=== PATIENT | female | born 1970 | race African-American/Black ===

== ENCOUNTER 2017-05-20 15:55 | Emergency (ER) | payer MEDICAID ==
[~2017-05-20] VITALS: Ht 170.2 cm; Wt 129.3 kg
[2017-05-20 16:10] VITALS: BP_SYST 158
--- NOTE | 2017-05-20 16:40 | NUR ---
PT ARRIVED FROM HOME WITH NAD NOTED ,VSS, PT A&O X4 C/O GENERALIZED BODY ACHES.
[2017-05-20 16:47] LABS: EOSINOPHILS # (AUTO) 0.2 K/uL (0.0-0.4); EOSINOPHILS % (AUTO) 2.4 % (0.0-4.0)
--- NOTE | 2017-05-20 16:49 | NUR ---
Pt to bed 7
[2017-05-20 16:52] LABS: BASOPHILS % (AUTO) 0.7 % (0.0-2.0); HEMATOCRIT 39.5 % (36-48); HEMOGLOBIN 12.4 g/dL (12.0-16.0); LYMPHOCYTES # (AUTO) 1.7 K/uL (1.0-5.5); LYMPHOCYTES % (AUTO) 26.5 % (20.5-51.5); MEAN CORPUSCULAR HEMOGLOBIN 24 pg (27-31); MEAN CORPUSCULAR HGB CONC 32 % (32-36); MEAN CORPUSCULAR VOLUME 75 fL (79.0-98.0); MONOCYTES # (AUTO) 0.3 K/uL (0.0-1.0); MONOCYTES % (AUTO) 4.8 % (1.7-9.3); NEUTROPHILS # (AUTO) 4.2 K/uL (1.8-7.7); NEUTROPHILS % (AUTO) 65.6 % (40.0-70.0); PLATELET COUNT (AUTO) 356 K/uL (130-430); RED BLOOD CELL COUNT(AUTO) 5.25 MIL/uL (4.2-6.2); RED CELL DISTRIBUTION WIDTH 14.7 % (9.0-15.0); WHITE BLOOD COUNT (AUTO) 6.4 K/uL (4.8-10.8)
[2017-05-20 16:59] LABS: CALCIUM 8.9 mg/dL (8.4-11.0); CREATININE 0.81 mg/dL (0.55-1.30); POTASSIUM 4.3 mmol/L (3.5-5.1)
[2017-05-20 17:04] LABS: ALBUMIN 3.3 g/dL (3.4-4.8); TOTAL BILIRUBIN 0.3 mg/dL (0.0-1.0); TOTAL PROTEIN, SERUM 7.6 g/dL (6.4-8.3)
--- NOTE | 2017-05-20 17:20 | NUR ---
DR. ROSE AT BEDSIDE. LABS OBTAINED
[2017-05-20] MEDS ORDERED: CYANOCOBALAMIN 1000 MCG/ML VIAL IM ONE (17:45)
[2017-05-20 17:48] LABS: BILIRUBIN,URINE NEGATIVE (NEGATIVE); BLOOD, URINE NEGATIVE (NEGATIVE); CLARITY/URINE CLEAR (CLEAR); COLOR,URINE YELLOW (YELLOW); GLUCOSE,URINE NEGATIVE (NEGATIVE); KETONES,URINE NEGATIVE (NEGATIVE); LEUKOCYTE ESTERASE ,URINE NEGATIVE (NEGATIVE); NITRITE, URINE NEGATIVE (NEGATIVE); PROTEIN URINE NEGATIVE (NEGATIVE)
[2017-05-20] MEDS ORDERED: NEPHROVITE, (FOLIC ACID/VITAMIN B COMP W-C 1 TAB) PO SCH (18:15)
[2017-05-20 18:46] VITALS: BP_SYST 129
--- NOTE | 2017-05-20 18:57 | NUR ---
Patient given written and verbal discharge instructions and verbalizes understanding. ER MD discussed with patient the results and treatment provided. Patient in stable condition. ID arm band remove Patient educated on pain management and to follow up with PMD. Pain Scale [0]. Opportunity for questions provided and answered.
== END 2017-05-20 18:46 | disposition home or self-care (01) ==
LOC: SED 15:55
DX: M79.2 Neuralgia and neuritis, unspecified (principal); J45.909 Unspecified asthma, uncomplicated; I10 Essential (primary) hypertension; E66.9 Obesity, unspecified; Z68.41 Body mass index [BMI] 40.0-44.9, adult
CPT/HCPCS: 36415; 80053; 81003; 85025; 96372; 99284; J3420

== ENCOUNTER 2017-06-23 22:32 | Emergency (ER) | payer MEDICAID ==
[~2017-06-23] VITALS: Ht 170.2 cm; Wt 124.3 kg
[2017-06-23 23:24] VITALS: BP_SYST 162
--- NOTE | 2017-06-23 23:40 | NUR ---
Note [email or web address] in EDM - 06/24/17 at 0428 by [email or web address] Pt states having generalized swelling to face due to possible bug bite that "possibly occurred on 06/22/17". Slight swelling noted, generalized to face. Pt denies SOB at this time. Pt denies pain at this time. Pt denies any other complaints.
--- NOTE | 2017-06-24 01:17 | NUR ---
PT AMBULATORY TO BED 8
--- NOTE | 2017-06-24 01:20 | NUR ---
Pt states having generalized swelling to face due to possible bug bite that "possibly occurred on 06/22/17". Slight swelling noted, generalized to face. Pt denies SOB at this time. Pt denies pain at this time. Pt denies any other complaints.
[2017-06-24] MEDS ORDERED: cefTRIAXone 1 GM VIAL IM ONE (02:30)
[2017-06-24 02:42] VITALS: BP_SYST 157
--- NOTE | 2017-06-24 02:42 | NUR ---
Patient given written and verbal discharge instructions and verbalizes understanding. ER MD discussed with patient the results and treatment provided. Patient in stable condition. ID arm band removed. Rx of Leverett and antibiotic given. Patient educated on pain management and to follow up with PMD. Pain Scale 0/10. Opportunity for questions provided and answered.
--- NOTE | 2017-06-24 02:42 | NUR ---
No adverse effects to medications noted.
[2017-06-24] MEDS ORDERED: LIDOCAINE PF 1%, 20 MG/2 ML AMP INJ ONE (02:45)
== END 2017-06-24 02:42 | disposition home or self-care (01) ==
LOC: SED 22:32
DX: L03.211 Cellulitis of face (principal); J45.909 Unspecified asthma, uncomplicated; I10 Essential (primary) hypertension; E66.9 Obesity, unspecified; Z68.41 Body mass index [BMI] 40.0-44.9, adult; Z98.84 Bariatric surgery status
CPT/HCPCS: 96372; 99283; J0696; J2001

== ENCOUNTER 2017-06-25 17:44 | Emergency (ER) | payer MEDICAID ==
[~2017-06-25] VITALS: Ht 170.2 cm; Wt 124.3 kg
[2017-06-25 17:50] VITALS: BP_SYST 151
[2017-06-25] MEDS ORDERED: LIDOCAINE 1% 10 MG/ML, 20 ML MDV INJ ONE (18:15)
[2017-06-25] MEDS ORDERED: CLINDAMYCIN 900 MG in D5W 100 ML IV ONE (18:45)
[2017-06-25] MEDS ORDERED: CLINDAMYCIN 900 mg/50mL D5W 50 ML IV ONE (19:43)
[2017-06-25 20:23] VITALS: BP_SYST 135
== END 2017-06-25 20:23 | disposition home or self-care (01) ==
LOC: SED 17:44
DX: M27.2 Inflammatory conditions of jaws (principal); I10 Essential (primary) hypertension; J45.909 Unspecified asthma, uncomplicated; E66.9 Obesity, unspecified
CPT/HCPCS: 10060; 96365; 99284; J2001; J3490; J7060

== ENCOUNTER 2017-06-28 09:35 | Emergency (ER) | payer MEDICAID ==
[~2017-06-28] VITALS: Ht 170.2 cm; Wt 124.3 kg
[2017-06-28 09:41] VITALS: BP_SYST 152
--- NOTE | 2017-06-28 09:41 | NUR ---
Patient to ER bed 08 to gown for evaluation. Side rails up. Report given to Sarita
--- NOTE | 2017-06-28 09:45 | NUR ---
ER Dr. Troy at bedside examining patient.
--- NOTE | 2017-06-28 09:46 | NUR ---
Pt AAOX4, able to verbalize needs. Pt states she is here for a recheck from previous visit for "bug bite" cellulitis on right chin. No active bleeding or drainage noted from site, site is nontender and firm around edges of bite. Pt states no pain or discomfort at this time. Afebrile. No other complaints or injuries per patient or noted.
[2017-06-28] MEDS ORDERED: cefTRIAXone 1 GM in LIDOCAINE 1%, 20 ML MDV 2.1 ML IM ONE (10:00)
--- NOTE | 2017-06-28 10:41 | NUR ---
Patient given written and verbal discharge instructions and verbalizes understanding. ER MD discussed with patient the results and treatment provided. Patient in stable condition. ID arm band removed. Rx of keflex and motrin given. Patient educated on pain management and to follow up with PMD. Pain Scale 0/10. Opportunity for questions provided and answered.
[2017-06-28 10:45] VITALS: BP_SYST 152
== END 2017-06-28 10:41 | disposition home or self-care (01) ==
LOC: SED 09:35
DX: Z48.01 Encounter for change or removal of surgical wound dressing (principal); R51 Headache; I10 Essential (primary) hypertension; J45.909 Unspecified asthma, uncomplicated; E66.9 Obesity, unspecified; Z68.41 Body mass index [BMI] 40.0-44.9, adult; Z98.84 Bariatric surgery status
CPT/HCPCS: 96372; 99283; J0696; J2001

== ENCOUNTER 2017-09-09 07:40 | Emergency (ER) | payer MEDICAID ==
[~2017-09-09] VITALS: Ht 152.4 cm; Wt 112.9 kg
[2017-09-09 07:46] VITALS: BP_SYST 156
--- NOTE | 2017-09-09 07:53 | NUR ---
Patient to ER bed 6 for evaluation. Side rails up. Pt refused to put gown on. Report given to Kenji MOREJON.
--- NOTE | 2017-09-09 07:53 | NUR ---
Pt report received from JEAN-PIERRE Christianson. Pt here for Vitamin B12 shot. Pt states that she's unable to get the shots from her PMD on a regular basis.
--- NOTE | 2017-09-09 08:00 | NUR ---
Dr. Russo at bedside to assess pt.
[2017-09-09] MEDS ORDERED: CYANOCOBALAMIN 1000 MCG/ML VIAL IM ONE (08:45)
[2017-09-09 08:47] LABS: BASOPHILS % (AUTO) 0.9 % (0.0-2.0); EOSINOPHILS # (AUTO) 0.2 K/uL (0.0-0.4); EOSINOPHILS % (AUTO) 4.2 % (0.0-4.0); HEMATOCRIT 35.4 % (36-48); HEMOGLOBIN 10.9 g/dL (12.0-16.0); LYMPHOCYTES # (AUTO) 1.2 K/uL (1.0-5.5); LYMPHOCYTES % (AUTO) 28.3 % (20.5-51.5); MEAN CORPUSCULAR HEMOGLOBIN 22 pg (27-31); MEAN CORPUSCULAR HGB CONC 31 % (32-36); MEAN CORPUSCULAR VOLUME 71 fL (79.0-98.0); MONOCYTES # (AUTO) 0.4 K/uL (0.0-1.0); MONOCYTES % (AUTO) 9.2 % (1.7-9.3); NEUTROPHILS # (AUTO) 2.5 K/uL (1.8-7.7); NEUTROPHILS % (AUTO) 57.4 % (40.0-70.0); PLATELET COUNT (AUTO) 306 K/uL (130-430); RED BLOOD CELL COUNT(AUTO) 4.98 MIL/uL (4.2-6.2); RED CELL DISTRIBUTION WIDTH 16.2 % (9.0-15.0); WHITE BLOOD COUNT (AUTO) 4.4 K/uL (4.8-10.8)
[2017-09-09 09:01] LABS: CALCIUM 9.4 mg/dL (8.4-11.0); CREATININE 0.63 mg/dL (0.55-1.30); POTASSIUM 4.2 mmol/L (3.5-5.1)
[2017-09-09 09:06] LABS: TOTAL BILIRUBIN 0.2 mg/dL (0.0-1.0)
[2017-09-09 09:24] VITALS: BP_SYST 145
--- NOTE | 2017-09-09 09:24 | NUR ---
Patient given written and verbal discharge instructions and verbalizes understanding. ER MD discussed with patient the results and treatment provided. Patient in stable condition. ID arm band removed. No Rx given. Patient educated on pain management and to follow up with PMD. Pain Scale 2/10. Opportunity for questions provided and answered.
== END 2017-09-09 09:24 | disposition home or self-care (01) ==
LOC: SED 07:40
DX: D50.9 Iron deficiency anemia, unspecified (principal); J45.909 Unspecified asthma, uncomplicated; I10 Essential (primary) hypertension; Z98.84 Bariatric surgery status
CPT/HCPCS: 36415; 80053; 83690; 85025; 96372; 99284; J3420

== ENCOUNTER 2018-01-28 11:02 | Emergency (ER) | payer MEDICAID ==
[~2018-01-28] VITALS: Ht 170.2 cm; Wt 112.5 kg
[2018-01-28 11:15] VITALS: BP_SYST 184
[2018-01-28 12:53] LABS: CALCIUM 9.3 mg/dL (8.4-11.0); CREATININE 0.59 mg/dL (0.55-1.30); POTASSIUM 4.4 mmol/L (3.5-5.1)
[2018-01-28 12:57] LABS: ALBUMIN 3.4 g/dL (3.4-4.8); BASOPHILS # (AUTO) 0.1 K/uL (0.0-0.2); BASOPHILS % (AUTO) 1.2 % (0.0-2.0); EOSINOPHILS # (AUTO) 0.2 K/uL (0.0-0.4); EOSINOPHILS % (AUTO) 2.7 % (0.0-4.0); HEMATOCRIT 40.6 % (36-48); HEMOGLOBIN 12.6 g/dL (12.0-16.0); INR 0.9 (0.8-1.2); LYMPHOCYTES # (AUTO) 1.3 K/uL (1.0-5.5); LYMPHOCYTES % (AUTO) 20.3 % (20.5-51.5); MEAN CORPUSCULAR HEMOGLOBIN 21 pg (27-31); MEAN CORPUSCULAR HGB CONC 31 % (32-36); MEAN CORPUSCULAR VOLUME 69 fL (79.0-98.0); MONOCYTES # (AUTO) 0.3 K/uL (0.0-1.0); MONOCYTES % (AUTO) 4.6 % (1.7-9.3); NEUTROPHILS # (AUTO) 4.4 K/uL (1.8-7.7); NEUTROPHILS % (AUTO) 71.2 % (40.0-70.0); PLATELET COUNT (AUTO) 286 K/uL (130-430); PROTHROMBIN TIME 9.5 SECS (9.5-12.5); RED BLOOD CELL COUNT(AUTO) 5.92 MIL/uL (4.2-6.2); RED CELL DISTRIBUTION WIDTH 17.8 % (9.0-15.0); TOTAL BILIRUBIN 0.3 mg/dL (0.0-1.0); WHITE BLOOD COUNT (AUTO) 6.3 K/uL (4.8-10.8)
[2018-01-28 15:00] VITALS: BP_SYST 155
== END 2018-01-28 15:00 | disposition home or self-care (01) ==
LOC: SED 11:02
DX: K21.9 Gastro-esophageal reflux disease without esophagitis (principal); I10 Essential (primary) hypertension; J45.909 Unspecified asthma, uncomplicated; E66.9 Obesity, unspecified; Z68.38 Body mass index [BMI] 38.0-38.9, adult
CPT/HCPCS: 36415; 71045; 80053; 84484; 85025; 85610-TC; 85730-TC; 93005; 99285

== ENCOUNTER 2018-04-04 16:48 | Emergency (ER) | payer MEDICAID ==
[~2018-04-04] VITALS: Ht 172.7 cm; Wt 112.5 kg
[2018-04-04 17:03] VITALS: BP_SYST 198
[2018-04-04 18:19] VITALS: BP_SYST 198
== END 2018-04-04 18:19 | disposition home or self-care (01) ==
LOC: SED 16:48
DX: J01.90 Acute sinusitis, unspecified (principal); J33.9 Nasal polyp, unspecified; I10 Essential (primary) hypertension; J45.909 Unspecified asthma, uncomplicated; E66.9 Obesity, unspecified; Z68.37 Body mass index [BMI] 37.0-37.9, adult
CPT/HCPCS: 99283

== ENCOUNTER 2018-05-07 12:20 | Emergency (ER) | payer MEDICAID ==
[~2018-05-07] VITALS: Ht 172.7 cm; Wt 117.5 kg
[2018-05-07 12:32] VITALS: BP_SYST 146
--- NOTE | 2018-05-07 12:36 | NUR ---
Patient to ER bed 07 to gown for evaluation. Side rails up.
[2018-05-07] MEDS ORDERED: NACL 0.9% 1,000 ML IV ONE (12:38)
--- NOTE | 2018-05-07 12:38 | NUR ---
Pt complains of body aches and dehydration. Pt denies nausea/vomiting. Pt is AAO x 4 and ambulatory. No other injuries/complaints per patient or noted.
--- NOTE | 2018-05-07 12:40 | NUR ---
ER Dr. Dewitt at bedside examining patient.
[2018-05-07] MEDS ORDERED: ONDANSETRON HCL 4 MG/2 ML VIAL IVP ONE (12:45)
[2018-05-07 13:07] LABS: BILIRUBIN,URINE NEGATIVE (NEGATIVE); BLOOD, URINE NEGATIVE (NEGATIVE); CLARITY/URINE CLEAR (CLEAR); COLOR,URINE YELLOW (YELLOW); GLUCOSE,URINE NEGATIVE (NEGATIVE); KETONES,URINE NEGATIVE (NEGATIVE); LEUKOCYTE ESTERASE ,URINE NEGATIVE (NEGATIVE); NITRITE, URINE NEGATIVE (NEGATIVE); PROTEIN URINE NEGATIVE (NEGATIVE); UROBILINOGEN,URINE 0.2 (0.2-1.0)
[2018-05-07 13:08] LABS: BASOPHILS # (AUTO) 0.1 K/uL (0.0-0.2); EOSINOPHILS # (AUTO) 0.3 K/uL (0.0-0.4); LYMPHOCYTES # (AUTO) 1.7 K/uL (1.0-5.5); NEUTROPHILS # (AUTO) 4.1 K/uL (1.8-7.7); PLATELET COUNT (AUTO) 406 K/uL (130-430)
[2018-05-07 13:13] LABS: EOSINOPHILS % (AUTO) 3.9 % (0.0-4.0); HEMATOCRIT 43.4 % (36-48); HEMOGLOBIN 13.6 g/dL (12.0-16.0); LYMPHOCYTES % (AUTO) 25.4 % (20.5-51.5); MEAN CORPUSCULAR HEMOGLOBIN 23 pg (27-31); MEAN CORPUSCULAR HGB CONC 31 % (32-36); MEAN CORPUSCULAR VOLUME 72 fL (79.0-98.0); MONOCYTES # (AUTO) 0.5 K/uL (0.0-1.0); MONOCYTES % (AUTO) 7.3 % (1.7-9.3); NEUTROPHILS % (AUTO) 62.4 % (40.0-70.0); RED CELL DISTRIBUTION WIDTH 17.9 % (9.0-15.0); WHITE BLOOD COUNT (AUTO) 6.7 K/uL (4.8-10.8)
[2018-05-07] MEDS ORDERED: CYANOCOBALAMIN 1000 MCG/ML VIAL SUBCUT ONE (13:15)
[2018-05-07 13:25] LABS: INR 0.9 (0.8-1.2); PROTHROMBIN TIME 9.4 SECS (9.5-12.5)
--- NOTE | 2018-05-07 13:25 | NUR ---
# 22 gauge angiocath placed to left forearm. Use of asceptic technique. Opsite placed over site. Blood return noted. Blood for lab drawn from site. Flushed with 10 cc of normal saline. No evidence of infiltration noted. Patient tolerated well.
[2018-05-07 13:27] LABS: CALCIUM 9.2 mg/dL (8.4-11.0); CREATININE 0.71 mg/dL (0.55-1.30)
[2018-05-07 13:32] LABS: ALBUMIN 3.4 g/dL (3.4-4.8); TOTAL BILIRUBIN 0.4 mg/dL (0.0-1.0)
[2018-05-07 14:48] VITALS: BP_SYST 146
--- NOTE | 2018-05-07 14:48 | NUR ---
Patient given written and verbal discharge instructions and verbalizes understanding. ER MD discussed with patient the results and treatment provided. Patient in stable condition. ID arm band removed. IV catheter removed intact and dressing applied, no active bleeding. No prescriptions given. Patient educated on pain management and to follow up with PMD. Pain scale 0/10. Opportunity for questions provided and answered. Medication side effect fact sheet provided.
== END 2018-05-07 14:48 | disposition home or self-care (01) ==
LOC: SED 12:20
DX: M79.1 Myalgia (principal); J45.909 Unspecified asthma, uncomplicated; I10 Essential (primary) hypertension; E66.9 Obesity, unspecified; Z68.39 Body mass index [BMI] 39.0-39.9, adult
CPT/HCPCS: 36415; 80053; 81003; 83690; 85025; 85610; 85730; 96372; 99284; J3420; J7030; J2405

== ENCOUNTER 2020-01-02 07:12 | Emergency (ER) | payer MEDICAID ==
[~2020-01-02] VITALS: Ht 170.2 cm; Wt 151.5 kg
[2020-01-02 07:40] VITALS: BP_SYST 210
--- NOTE | 2020-01-02 07:40 | NUR ---
Patient to ER bed 4 to gown for evaluation. Side rails up. Report given to JEAN-PIERRE Mesa.
--- NOTE | 2020-01-02 07:41 | NUR ---
Patient is awake, alert, and oriented x4. Patient is complaining of cold symptoms including, cough and congestion x2 weeks. She states she has blood tinged, yellow sputum and that medication provided by her MD has been ineffective in helping her symptoms. Dr. Kearns notified of patient BP, she reports taking her medications 30 minutes ago. Addendum: 01/02/20 at 0748 by [email or web address] MD is Dr. Lazo.
--- NOTE | 2020-01-02 07:42 | NUR ---
ER Dr. Lazo at bedside examining patient.
[2020-01-02] MEDS ORDERED: IPRATROPIUM BROM 0.5 MG/2.5 ML VIAL.NEB (ATROVENT) INH ONE ×2 (07:45→08:00)
[2020-01-02] MEDS ORDERED: ALBUTEROL SULFATE 0.083% 2.5 MG/3 ML VIAL.NEB INH ONE ×2 (07:45→08:00)
--- NOTE | 2020-01-02 08:05 | NUR ---
X-ray at bedside.
--- NOTE | 2020-01-02 08:30 | NUR ---
Patient refused to have BP rechecked. She removed cuff in the middle of inflating. Addendum: 01/02/20 at 0839 by [email or web address] Patient would not keep arm still while attempting to take blood pressure. Kept waving it around while talking, asked her to please keep her arm still while attempting to take blood pressure, she ripped off cuff.
--- NOTE | 2020-01-02 08:31 | NUR ---
Dr. Lazo at bedside to talk to patient.
--- NOTE | 2020-01-02 08:49 | NUR ---
Patient given written and verbal discharge instructions and verbalizes understanding. ER MD discussed with patient the results and treatment provided. Patient in stable condition. ID arm band removed. Rx of sudbarried norco, prednisone given. Patient educated on pain management and to follow up with PMD. Pain Scale 0/10. Opportunity for questions provided and answered. Medication side effect fact sheet provided.
== END 2020-01-02 08:49 | disposition home or self-care (01) ==
LOC: SED 07:12
DX: J45.909 Unspecified asthma, uncomplicated (principal)
CPT/HCPCS: 71045; 94640; 99283; J7613

== ENCOUNTER 2020-01-10 17:21 | Emergency (ER) | payer MEDICAID ==
[~2020-01-10] VITALS: Ht 170.2 cm; Wt 147.0 kg
[2020-01-10 17:21] VITALS: BP_SYST 200
[2020-01-10] MEDS: ASPIRIN 81 MG TAB.CHEW PO ONE (18:07)
[2020-01-10] MEDS: NACL 0.9% 1,000 ML IV ONE (18:08)
[2020-01-10 18:27] LABS: BASOPHILS % (AUTO) 0.3 % (0.0-2.0); EOSINOPHILS # (AUTO) 0.1 K/uL (0.0-0.4); EOSINOPHILS % (AUTO) 1.2 % (0.0-4.0); HEMATOCRIT 49.3 % (36-48); HEMOGLOBIN 15.8 g/dL (12.0-16.0); LYMPHOCYTES # (AUTO) 1.5 K/uL (1.0-5.5); LYMPHOCYTES % (AUTO) 20.3 % (20.5-51.5); MEAN CORPUSCULAR HEMOGLOBIN 25 pg (27-31); MEAN CORPUSCULAR HGB CONC 32 % (32-36); MEAN CORPUSCULAR VOLUME 78 fL (79.0-98.0); MONOCYTES # (AUTO) 0.5 K/uL (0.0-1.0); MONOCYTES % (AUTO) 7.5 % (1.7-9.3); NEUTROPHILS # (AUTO) 5.1 K/uL (1.8-7.7); NEUTROPHILS % (AUTO) 70.7 % (40.0-70.0); PLATELET COUNT (AUTO) 341 K/uL (130-430); RED BLOOD CELL COUNT(AUTO) 6.36 MIL/uL (4.2-6.2); RED CELL DISTRIBUTION WIDTH 17.4 % (9.0-15.0); WHITE BLOOD COUNT (AUTO) 7.2 K/uL (4.8-10.8)
[2020-01-10 18:39] LABS: ANION GAP 6 (5-15); CALCIUM 9.5 mg/dL (8.4-11.0); CHLORIDE 97 mmol/L (98-107); CREATININE 0.74 mg/dL (0.55-1.30); GLUCOSE 110 mg/dL (70-99); POTASSIUM 3.8 mmol/L (3.5-5.1); SODIUM SERUM 134 mmol/L (136-145); UREA NITROGEN, BLOOD 13 mg/dL (8-21)
[2020-01-10] MEDS: PROCHLORPERAZINE EDISYLATE 10 MG/2 ML VIAL IVP ONE (18:39)
[2020-01-10] MEDS: DIPHENHYDRAMINE INJ 50 MG/ML VIAL IVP ONE (18:39)
[2020-01-10 18:48] LABS: ALANINE AMINOTRANSFERASE 35 U/L (12-78); ALBUMIN 3.8 g/dL (3.4-4.8); ASPARTATE AMINOTRANSFERASE 24 U/L (10-37); TOTAL BILIRUBIN 0.3 mg/dL (0.0-1.0)
[2020-01-10 18:49] LABS: GFR AFRICAN AMERICAN 107 mL/min (>90)
[2020-01-10 19:22] VITALS: BP_SYST 174
== END 2020-01-10 19:22 | disposition home or self-care (01) ==
LOC: SED 17:21
DX: F41.9 Anxiety disorder, unspecified (principal); J45.909 Unspecified asthma, uncomplicated; I10 Essential (primary) hypertension; Z98.84 Bariatric surgery status
CPT/HCPCS: 36415; 71045; 80053; 84484; 85025; 85379; 93005; 96374; 96375; 99285; J0780; J1200; J7030